=== PATIENT | female | born 1990 | race Caucasian/White ===

== ENCOUNTER 2020-07-07 | Outpatient (CLI) | payer BC | END 2020-07-07 20:31 | disposition home or self-care (01) | DX: Z53.9 Procedure and treatment not carried out, unspecified reason (principal) ==

== ENCOUNTER 2020-07-08 11:30 | Outpatient (CLI) | payer BC | END 2020-07-08 23:59 | disposition home or self-care (01) | LOC: COV 11:30 | PROVIDERS: ATTEND Family Medicine | DX: Z20.828 Contact with and (suspected) exposure to other viral communicable diseases (principal) ==